=== PATIENT | male | born 1995 | race Caucasian/White ===

== ENCOUNTER 2021-01-20 22:22 | Emergency (ER) | payer BC ==
[~2021-01-20] VITALS: Ht 188 cm; Wt 100.2 kg
--- NOTE | 2021-01-20 22:57 | NUR ---
PATIENT WAS MSE BY DR WHEATLEY IN ROOM 03A.
[2021-01-20 23:11] LABS: CARBON DIOXIDE 22 mmol/L (21-32); CHLORIDE 105 mmol/L (98-107); CREATININE 1.3 mg/dL (0.6-1.3); GLUCOSE 119 mg/dL (74-106); POTASSIUM 3.8 mmol/L (3.5-5.1); UREA NITROGEN, BLOOD 41 mg/dL (7-18)
[2021-01-20 23:13] LABS: HEMATOCRIT 42.7 % (36.7-47.1); MEAN CORPUSCULAR HEMOGLOBIN 30.2 uug (23.8-33.4); MEAN CORPUSCULAR VOLUME 85.6 fL (73.0-96.2); PLATELET COUNT (AUTO) 308 K/uL (152-348)
[2021-01-20 23:16] LABS: ETHANOL < 3 MG/DL (0-0)
[2021-01-20 23:24] LABS: THYROID STIMULATING HORMONE 0.766 mIU/mL (0.358-3.740)
[2021-01-20 23:28] LABS: ACETAMINOPHEN < 2.0 ug/mL (10-30); ALANINE AMINOTRANSFERASE 57 U/L (16-63); ALKALINE PHOSPHATASE 76 U/L (50-136); ASPARTATE AMINOTRANSFERASE 71 U/L (15-37); BILIRUBIN,DIRECT 0.2 mg/dL (0.0-0.2); BILIRUBIN,TOTAL 0.6 mg/dL (0.2-1.0); TOTAL PROTEIN, SERUM 7.2 g/dL (6.4-8.2)
[2021-01-21] MEDS ORDERED: LORAZEPAM 0.5 MG TABLET PO ONE (00:30)
--- NOTE | 2021-01-21 00:32 | NUR ---
Patient discharged in stable condition to staff member from [facility] with no distress noted.. Written and verbal after care instructions given. Patient verbalizes understanding of instructions. Stressed follow up or return to ER for worsening s/s.
[2021-01-21 00:33] VITALS: BP 110/74
[2021-01-21] MEDS ORDERED: LORAZEPAM 1 MG TABLET ONE (00:33)
== END 2021-01-21 00:34 ==
LOC: ER 22:22
DX: Z02.2 Encounter for examination for admission to residential institution (principal); Z20.822 Contact with and (suspected) exposure to COVID-19; F15.10 Other stimulant abuse, uncomplicated; F17.210 Nicotine dependence, cigarettes, uncomplicated
CPT/HCPCS: 36415; 84443; 85025; 93005; A4663; G0480